=== PATIENT | female | born 1995 | race Two or more races ===

== ENCOUNTER 2019-04-09 15:55 | Observation (INO) | payer OTHER ==
[~2019-04-09] VITALS: Ht 175 cm; Wt 105.7 kg
[2019-04-09] MEDS ORDERED: INSLAN SQ ×2 (16:32)
[2019-04-09] MEDS ORDERED: PREN-217 PO (16:33)
[2019-04-09] MEDS ORDERED: ONDANSETRON HCL 4 MG TABLET PO ONE (17:15)
[2019-04-09] MEDS: RINGERS SOLUTION,LACTATED 1,000 ML IV SCH ×2 (17:32→17:54)
[2019-04-09] MEDS ORDERED: METHY250 PO (17:54)
[2019-04-09] MEDS ORDERED: CefTRIAXone 1 GM/DEXTROSE 50 ML IV ONE (18:30)
[2019-04-09 18:46] LABS: INFLUENZA TYPE A NEGATIVE FOR TYPE A (NEGATIVE); INFLUENZA TYPE B NEGATIVE FOR TYPE B (NEGATIVE)
[2019-04-09] MEDS ORDERED: NIFEdipine 10 MG CAPSULE PO ONE (20:00)
[2019-04-09 20:24] LABS: GLUCOMETER DEV NAME(LOC) 4S.; GLUCOSE,POINT OF CARE 138 MG/DL (70-110)
[2019-04-09] MEDS ORDERED: ACETAMINOPHEN 500 MG TABLET PO ONE (21:45)
== END 2019-04-09 22:00 | disposition home or self-care (01) ==
LOC: 4S 15:55
PROVIDERS: ADMIT Obstetrics & Gynecology; ATTEND Obstetrics & Gynecology
DX: O60.03 Preterm labor without delivery, third trimester (principal); O26.893 Other specified pregnancy related conditions, third trimester; R10.9 Unspecified abdominal pain; O24.913 Unspecified diabetes mellitus in pregnancy, third trimester; O16.3 Unspecified maternal hypertension, third trimester; Z3A.33 33 weeks gestation of pregnancy
CPT/HCPCS: 82962; 87491; 87591; 87804; 96365; G0378; J0696; J7120; Q0162

== ENCOUNTER 2019-05-05 08:46 | Inpatient (IN) | payer OTHER ==
[~2019-05-05] VITALS: Ht 175 cm; Wt 102.5 kg
[2019-05-05] MEDS: AMPICILLIN SODIUM 1 GM/NS 50 ML IV SCH ×3 (00:10→19:21)
[~2019-05-05 08:46] MED LIST: INSLAN SQ; METHY250 PO; PREN-217 PO
[2019-05-05] MEDS ORDERED: RINGERS SOLUTION,LACTATED 1,000 ML IV PRN (09:23)
[2019-05-05] MEDS ORDERED: OXYTOCIN 30 UNITS/LACT RINGERS 500 ML IV ONE (09:23)
[2019-05-05] MEDS ORDERED: MINERAL OIL 30 ML UDCUP VG ONE (09:30)
[2019-05-05] MEDS ORDERED: CITRIC ACID/SODIUM CITRATE 30 ML SOLUTION UDCUP PO PRN (09:30)
[2019-05-05] MEDS ORDERED: OXYGEN THERAPY IH SCH (09:30)
[2019-05-05] MEDS ORDERED: METOCLOPRAMIDE HCL 5 MG/ML 2 ML VIAL IVP PRN (09:30)
[2019-05-05] MEDS ORDERED: METHYLERGONOVINE MALEATE 0.2 MG/ML VIAL IM PRN (09:30)
[2019-05-05] MEDS ORDERED: PREN-217 PO (09:39)
[2019-05-05 09:56] VITALS: BP 133/80
[2019-05-05 10:04] LABS: BASOPHILS % (AUTO) 0.7 % (0.0-2.0); EOSINOPHILS % (AUTO) 0.3 % (1.0-6.0); HEMATOCRIT 32.2 % (36-46); HEMOGLOBIN 10.8 g/dL (12.0-16.0); LYMPHOCYTES # (AUTO) 1.3 K/uL (1.0-4.8); LYMPHOCYTES % (AUTO) 8.5 % (22.0-44.0); MEAN CORPUSCULAR HEMOGLOBIN 26.4 pg (26.0-34.0); MEAN CORPUSCULAR HGB CONC 33.5 G/dL (31.0-37.0); MEAN CORPUSCULAR VOLUME 79 fL (80-100); MONOCYTES # (AUTO) 0.8 K/uL (0.1-1.0); MONOCYTES % (AUTO) 5.6 % (2.0-9.0); NEUTROPHILS # (AUTO) 12.5 K/uL (1.8-7.7); NEUTROPHILS % (AUTO) 84.9 % (40.0-70.0); PLATELET COUNT (AUTO) 358 K/uL (150-450); RED BLOOD CELL COUNT(AUTO) 4.09 MIL/uL (4.00-5.20); RED CELL DISTRIBUTION WIDTH 15.4 % (11.5-14.5)
[2019-05-05 10:26] LABS: GLUCOMETER DEV NAME(LOC) 4S.; GLUCOSE,POINT OF CARE 103 MG/DL (70-110)
[2019-05-05] MEDS ORDERED: AMPICILLIN SODIUM 2 GM/NS 100 ML IV ONE (10:45)
[2019-05-05] MEDS ORDERED: MISOPROSTOL 50 MCG TABLET PO ONE ×2 (11:00→15:30)
[2019-05-05] MEDS ORDERED: INSLAN SQ ×3 (11:48)
[2019-05-05] MEDS: RINGERS SOLUTION,LACTATED 1,000 ML IV SCH ×3 (12:57→19:34)
[2019-05-05 13:37] LABS: GLUCOMETER DEV NAME(LOC) 4S.; GLUCOSE,POINT OF CARE 82 MG/DL (70-110)
[2019-05-05] MEDS: FentaNYL CITRATE-PF 100 MCG/2 ML VIAL IVP PRN ×5 (19:33→21:30)
[2019-05-05] MEDS: MISOPROSTOL 50 MCG TABLET PO SCH (19:50)
[2019-05-05 20:08] LABS: GLUCOMETER DEV NAME(LOC) 4S.; GLUCOSE,POINT OF CARE 114 MG/DL (70-110)
[2019-05-05] MEDS ORDERED: ROPIVACAINE HCL/PF 0.2% 100 ML ED ONE (21:35)
[2019-05-05] MEDS ORDERED: DiphenhydrAMINE HCL 50 MG/ML VIAL IVP PRN (22:00)
[2019-05-05] MEDS ORDERED: ONDANSETRON HCL 4 MG/2 ML VIAL IVP PRN (22:00)
[2019-05-05] MEDS ORDERED: ROPIVACAINE HCL/PF 0.2% 100 ML ED PRN (22:00)
[2019-05-06] MEDS: MISOPROSTOL 50 MCG TABLET PO SCH (00:20)
[2019-05-06] MEDS: RINGERS SOLUTION,LACTATED 1,000 ML IV SCH ×2 (01:52→06:54)
[2019-05-06] MEDS ORDERED: OXYTOCIN 30 UNITS/LACT RINGERS 500 ML IV PRN (03:01)
[2019-05-06] MEDS: AMPICILLIN SODIUM 1 GM/NS 50 ML IV SCH ×3 (03:03→07:54)
[2019-05-06 15:54] LABS: GLUCOMETER DEV NAME(LOC) 4S.; GLUCOSE,POINT OF CARE 189 MG/DL (70-110)
[2019-05-06] MEDS ORDERED: OXYTOCIN 30 UNITS/LACT RINGERS 500 ML IV ONE (16:44)
[2019-05-06] MEDS ORDERED: IBUPROFEN 800 MG TABLET PO PRN (16:45)
[2019-05-06] MEDS ORDERED: LANOLIN 7 GM OINTMENT TP PRN (16:45)
[2019-05-06] MEDS ORDERED: GLYCERIN/WITCH HAZEL LEAF 40 PADS JAR TP PRN (16:45)
[2019-05-06] MEDS ORDERED: OxyCODONE HCL/ACETAMINOPHEN 5-325 MG TABLET PO PRN ×2 (16:45)
[2019-05-06] MEDS ORDERED: BENZOCAINE 20%/MENTHOL 56 GM SPRAY CANISTER TP PRN (16:45)
[2019-05-06] MEDS ORDERED: LIDOCAINE/PF 1% 30 ML VIAL INJ PRN (16:45)
[2019-05-06] MEDS ORDERED: INSULIN GLARGINE,HUM.REC.ANLOG 100 UNITS/ML SQ SCH (21:00)
[2019-05-06] MEDS: MAGNESIUM HYDROXIDE SUSPENSION 30 ML UDCUP PO PRN (21:36)
[2019-05-06] MEDS ORDERED: INSULIN LISPRO 100 UNITS/ML SQ PRN (22:45)
[2019-05-06] MEDS ORDERED: DEXTROSE 50%-WATER 25 GM/50 ML SYRINGE IVP PRN (22:45)
[2019-05-06 23:19] LABS: GLUCOMETER DEV NAME(LOC) 4S.; GLUCOSE,POINT OF CARE 239 MG/DL (70-110)
[2019-05-07 05:56] LABS: BASOPHILS % (AUTO) 0.5 % (0.0-2.0); EOSINOPHILS % (AUTO) 0.6 % (1.0-6.0); HEMOGLOBIN 10.3 g/dL (12.0-16.0); LYMPHOCYTES # (AUTO) 1.6 K/uL (1.0-4.8); MEAN CORPUSCULAR HEMOGLOBIN 26.2 pg (26.0-34.0); MEAN CORPUSCULAR HGB CONC 33.2 G/dL (31.0-37.0); MEAN CORPUSCULAR VOLUME 79 fL (80-100); MONOCYTES # (AUTO) 0.8 K/uL (0.1-1.0); MONOCYTES % (AUTO) 6.5 % (2.0-9.0); NEUTROPHILS # (AUTO) 9.2 K/uL (1.8-7.7); NEUTROPHILS % (AUTO) 78.4 % (40.0-70.0); PLATELET COUNT (AUTO)-OB 341 K/uL (150-450); RED BLOOD CELL COUNT(AUTO) 3.93 MIL/uL (4.00-5.20); RED CELL DISTRIBUTION WIDTH 15.6 % (11.5-14.5)
[2019-05-07 07:06] LABS: GLUCOMETER DEV NAME(LOC) 4S.; GLUCOSE,POINT OF CARE 112 MG/DL (70-110)
[2019-05-07] MEDS ORDERED: INFLUENZA VIRUS VACCINE QVS 2019-20 (3YR+)/PF 60 MCG/0.5 ML SYRINGE IM ONE (07:30)
[2019-05-07] MEDS: MAGNESIUM HYDROXIDE SUSPENSION 30 ML UDCUP PO PRN (08:13)
[2019-05-07] MEDS ORDERED: INSULIN GLARGINE,HUM.REC.ANLOG 100 UNITS/ML SQ SCH (09:00)
[2019-05-07] MEDS ORDERED: FERR-89 PO (09:45)
[2019-05-07] MEDS ORDERED: DOCU-275 PO (09:46)
[2019-05-07] MEDS ORDERED: IBUP-2071 PO (09:47)
== END 2019-05-07 11:10 | disposition home or self-care (01) | DRG 807 ==
LOC: OBSVTOIN 08:46 → 4S 08:46
PROVIDERS: ADMIT Obstetrics & Gynecology; ATTEND Obstetrics & Gynecology
PROC: 10E0XZZ Delivery of Products of Conception, External Approach (ICD-10-PCS; principal; 2019-05-06)
PROC: 0HQ9XZZ Repair Perineum Skin, External Approach (ICD-10-PCS; 2019-05-06)
PROC: 3E0R3BZ Introduction of Anesthetic Agent into Spinal Canal, Percutaneous Approach (ICD-10-PCS; 2019-05-06)
PROC: 00HU33Z Insertion of Infusion Device into Spinal Canal, Percutaneous Approach (ICD-10-PCS; 2019-05-06)
DX: O70.0 First degree perineal laceration during delivery (principal); Z37.0 Single live birth; Z3A.39 39 weeks gestation of pregnancy
CPT/HCPCS: 83036; 86850; 86900; 86901; 90686; J0290; J1815; J2590; J2795; J3010; J7120